=== PATIENT | female | born 1970 | race African-American/Black ===

== ENCOUNTER 2017-08-25 22:53 | Emergency (ER) | payer OTHER ==
[2017-08-25] MEDS ORDERED: DEXAMETHASONE 4 MG TABLET (23:15)
[2017-08-25] MEDS: DEXAMETHASONE 4 MG TABLET PO (23:17)
[2017-08-26] MEDS ORDERED: DEXAMETHASONE 4 MG TABLET PO (08:00)
[2017-08-26 09:35] LABS: NEGATIVE OBC STREP NEG; POSITIVE OBC STREP POS
== END 2017-08-25 23:50 | disposition home or self-care (01) ==
LOC: ER 22:53
DX: J02.9 Acute pharyngitis, unspecified (principal); I10 Essential (primary) hypertension; E03.9 Hypothyroidism, unspecified
CPT/HCPCS: 87070; 87880; 99283; J8540